=== PATIENT | female | born 1985 | race Caucasian/White ===

== ENCOUNTER → 2018-02-19 | Outpatient (CLI) | payer OTHER ==
[2018-02-19 13:40] LABS: Basophils % (A) 0 %; Eosinophils # (A) 0.3 k/uL (0-0.7); Eosinophils % (A) 3 %; HCT 33.6 % (34.0-46.0); HGB 10.9 gm/dL (11.4-16.0); Hypochromasia Slight; Lymphocytes # (A) 2.7 k/uL (1.0-4.8); Lymphocytes % (A) 31 %; MCH 24.6 pg (25.0-35.0); MCHC 32.3 g/dL (31.0-37.0); MCV 76.1 fL (80.0-100.0); Mean Platelet Volume 6.9; Microcytosis Slight; Monocytes # (A) 0.4 k/uL (0-1.0); Monocytes % (A) 5 %; Neutrophils # (A) 5.1 k/uL (1.3-7.7); Neutrophils % (A) 58 %; Platelet Count 354 k/uL (150-450); RBC 4.42 m/uL (3.80-5.40); RDW 14.7 % (11.5-15.5); WBC 8.7 k/uL (3.8-10.6)
== END | disposition home or self-care (01) ==
LOC: LABPAT 11:51
PROVIDERS: ATTEND Obstetrics & Gynecology
DX: Z01.812 Encounter for preprocedural laboratory examination (principal)
CPT/HCPCS: 36415; 85025

== ENCOUNTER 2018-02-26 06:12 | Day surgery (SDC) | payer OTHER ==
[2018-02-19 11:54] VITALS: BMI 26.6
--- NOTE | 2018-02-25 20:13 | P.HPOB ---
History of Present Illness H&P Date: 02/25/18 Chief Complaint: Family planning This is a 32-year-old female 4 para 1, who presents for laparoscopic bilateral tubal ligation via fulguration. She requests permanent sterilization. She is currently not using control. Obstetrical history: . History of 1 section and 2 miscarriages. She also had one termination of . Gynecologic history: She recently has been treated for Trichomonas. Social history: She is single. She works in a factory. Review of Systems Constitutional: Reports fatigue, Denies chills, Denies fever Eyes: denies blurred vision, denies pain Ears, nose, mouth and throat: Denies headache, Denies sore throat Cardiovascular: Denies chest pain, Denies shortness of breath Respiratory: Denies cough Gastrointestinal: Denies abdominal pain, Denies diarrhea, Denies nausea, Denies vomiting Genitourinary: Reports dysmenorrhea Musculoskeletal: Denies myalgias Integumentary: Denies pruritus, Denies rash Neurological: Reports headaches Psychiatric: Reports anxiety Endocrine: Reports fatigue, Denies weight change Past Medical History Past Medical History: Asthma Additional Past Medical History / Comment(s): Hx of Anemia History of Any Multi-Drug Resistant Organisms: None Reported Past Surgical History: Section, Cholecystectomy Additional Past Surgical History / Comment(s): D&C x 2 Past Anesthesia/Blood Transfusion Reactions: No Reported Reaction Smoking Status: Current every day smoker Past Alcohol Use History: Rare Past Drug Use History: Marijuana Additional Drug Use History / Comment(s): Daily marijuana - Past Family History Mother Family Medical History: No Reported History Father Family Medical History: Hypertension Medications and Allergies Home Medications Medication Instructions Recorded Confirmed Type No Known Home Medications 02/19/18 02/19/18 History Allergies Allergy/AdvReac Type Severity Reaction Status Date / Time No Known Allergies Allergy Verified 02/19/18 11:49 Exam Osteopathic Statement: *. No significant issues noted on an osteopathic structural exam other than those noted in the History and Physical/Consult. HEENT: Within normal limits Heart: Regular rate and rhythm Lungs: Clear to auscultation bilaterally Abdomen: Nontender Pelvic exam: Uterus is anteverted, nontender, with no adnexal masses or tenderness palpated. Extremities: Negative Homans Assessment and Plan (1) Family planning Status: Acute Code(s): Z30.09 - ENCOUNTER FOR OTH GENERAL CNSL AND ADVICE ON CONTRACEPTION SNOMED Code(s): 292674546 Plan: Proceed with laparoscopic bilateral tubal ligation via fulguration. I have discussed the risks, benefits, and alternative therapies for the above- mentioned procedure and for both sedation/anesthesia as well as necessary blood products administration, if indicated, as they pertain to this patient. The patient has indicated her understanding and acceptance of the risks and procedures discussed.
[~2018-02-26 06:12] MED LIST: Pre Op ABX Message 1 EACH MISC MISCELLANE ONE
[2018-02-26] MEDS ORDERED: LIDOCAINE 1% 20 ML VIAL (10MG/ML) FOR IV START INTRADERMA ONE (06:59)
[2018-02-26] MEDS ORDERED: LACTATED RINGERS 1,000 ML IV ONE (06:59)
[2018-02-26] MEDS ORDERED: ONDANSETRON 4 MG/2 ML VIAL IM STA (07:08)
[2018-02-26] MEDS ORDERED: fentaNYL (PF) 50 MCG/ML 2 ML AMP ONE (07:30)
[2018-02-26] MEDS ORDERED: MIDAZOLAM 2 MG/2 ML VIAL ONE (07:30)
[2018-02-26] MEDS ORDERED: KETOROLAC 30 MG/ML 1 ML VIAL ONE (07:30)
[2018-02-26] MEDS ORDERED: HYDROmorphone (PF) 1 MG/ML ONE (07:30)
[2018-02-26] MEDS ORDERED: ROCURONIUM BROMIDE 10 MG/ML 10 ML VIAL IV ONE (07:30)
[2018-02-26] MEDS ORDERED: GLYCOPYRROLATE 0.2 MG/ML 2 ML VIAL ONE (07:30)
[2018-02-26] MEDS ORDERED: NEOSTIGMINE 1 MG/ML 10 ML VIAL ONE (07:30)
[2018-02-26] MEDS ORDERED: LIDOCAINE 1% INJ 10MG/ML (20 ML MDV) ONE (07:30)
[2018-02-26] MEDS ORDERED: PROPOFOL 10 MG/ML 20 ML VIAL IV ONE (07:30)
[2018-02-26] MEDS ORDERED: BUPIVACAINE (PF) 0.5% 30 ML VIAL SQ ONE ×2 (07:59→08:10)
--- NOTE | 2018-02-26 08:17 | P.OP ---
Date of Procedure: 02/26/18 Preoperative Diagnosis: Family planning Postoperative Diagnosis: Same Procedure(s) Performed: Laparoscopic bilateral tubal ligation via fulguration Anesthesia: [place] Surgeon: Mariela Ram Estimated Blood Loss (ml): 5 Pathology: none sent Condition: stable Disposition: same day Indications for Procedure: This is a 32-year-old female 4 para 1, who presents for laparoscopic bilateral tubal ligation via fulguration. She requests permanent sterilization. She is currently not using control. Operative Findings: Uterus is anteverted and sounded to 9 cm. Both tubes appeared normal. Left ovary did have a small hemorrhagic cyst approximately 3 cm. Description of Procedure: The patient is taken to the operating room where she is placed in the dorsal lithotomy position. She is prepped and draped in the normal sterile fashion. Examination is performed under anesthesia. Uterus is found to be in an anteverted position. No adnexal masses were palpated. Next a bivalve speculum was placed in the patient's vagina. A single-tooth tenaculum was used to grasp the anterior lip of the cervix. The cervical os was noted to be slightly stenotic and therefore cervix was dilated with Pino dilators until a sound could be placed. The uterus was sounded to 9 cm. The kroner uterine manipulator was then inserted through the cervix and the balloon was inflated. The single-tooth tenaculum is removed speculum was removed gloves were changed and attention was turned to the abdomen. The infraumbilical fold was grasped in transverse fashion with 2 Allis clamps. A small transverse incision was made with a scalpel. A hemostat was used to carry the incision down to the underlying layer of fascia. A towel clip was placed above the umbilicus for retraction. An 11 mm disposable bladeless trocar was then inserted into the peritoneal cavity under direct visualization. Once inside, pneumoperitoneum was achieved with CO2 gas. The insert was removed and the camera was placed. Intraperitoneal placement was confirmed. No bleeding was noted. Next the patient was placed in Trendelenburg position. A small stab incision was made suprapubically and a 5 mm disposable bladeless trocar was inserted into the peritoneal cavity under direct visualization. Once inside pelvic contents were inspected. Next a bipolar Kleppinger instrument was placed through the inferior trocar and the midportion of each tube was brought away from other structures and completely fulgurated on approximate 2-3 cm segment of each tube. Excellent hemostasis was noted. The bipolar Kleppinger instrument was also used to make a small hole in the left ovarian cyst. Serosanguineous discharge was noted. The cyst did go down in size. A picture was taken. Pneumoperitoneum was released after the inferior trocar was removed under direct visualization. The upper trocar was then removed. The fascial incision was closed with 0 Vicryl suture in interrupted [id number] stitch. The skin incisions were then closed with 4-0 Vicryl suture in a subcuticular fashion. Incision sites were then injected with half percent Marcaine. Approximately 6 mL were used. Next the kroner uterine manipulator was removed. Minimal bleeding was noted. All sponge and needle counts are correct. The patient is then taken to recovery room in stable condition.
[2018-02-26 08:38] VITALS: TEMP 96.9
[2018-02-26] MEDS: HYDROmorphone 1 MG/ML 1 ML SYRINGE IVP ONE ×2 (08:39→08:44)
[2018-02-26 08:51] VITALS: RESP 16
[2018-02-26 09:14] VITALS: BP 120/85; PULSE 68
== END 2018-02-26 09:55 | disposition home or self-care (01) ==
LOC: OR 06:12
PROVIDERS: ATTEND Obstetrics & Gynecology
DX: Z30.2 Encounter for sterilization (principal); N83.202 Unspecified ovarian cyst, left side; J45.909 Unspecified asthma, uncomplicated; F17.210 Nicotine dependence, cigarettes, uncomplicated
CPT/HCPCS: 81025; 58670; J2250; J2710; J2405; J2001; J3010; J1885; J1170; J2704

== ENCOUNTER 2018-07-25 12:05 | Emergency (ER) | payer OTHER ==
[2018-07-25 12:11] VITALS: BP 148/83; RESP 18; TEMP 98.2
--- NOTE | 2018-07-25 12:39 | ED ---
General Adult HPI - General Chief complaint: Upper Respiratory Infection Stated complaint: cough, exposed to pnuemonia Time Seen by Provider: 07/25/18 12:24 Source: patient, RN notes reviewed Mode of arrival: ambulatory Limitations: no limitations - History of Present Illness Initial comments: Patient is a 33-year-old female with history of asthma who presents the emergency department with complaints of cough productive of yellow sputum for 4 days. She reports that she felt a little feverish at home and that her chest feels "tight." She also complains of congestion. Patient denies any recent sore throat, chills, shortness of breath, chest pain, back pain, abdominal pain , nausea or vomiting, numbness or tingling, headaches or visual changes, or any other complaints. - Related Data Previous Rx's Medication Instructions Recorded Acetaminophen-Codeine 300-30mg 1 tab PO Q6H PRN 3 Days #12 tablet 02/26/18 [Tylenol w/codeine #3] Azithromycin [Zithromax Z-pack] 0 mg PO DIRECTED #6 tab 07/25/18 Allergies Allergy/AdvReac Type Severity Reaction Status Date / Time No Known Allergies Allergy Verified 07/25/18 12:09 Review of Systems ROS Statement: Those systems with pertinent positive or pertinent negative responses have been documented in the HPI. ROS Other: All systems not noted in ROS Statement are negative. Past Medical History Past Medical History: Asthma History of Any Multi-Drug Resistant Organisms: None Reported Past Surgical History: Section, Cholecystectomy, Tubal Ligation Additional Past Surgical History / Comment(s): D&C x 2 Past Anesthesia/Blood Transfusion Reactions: No Reported Reaction Past Psychological History: Anxiety Smoking Status: Current every day smoker Past Alcohol Use History: Occasional Past Drug Use History: Marijuana - Past Family History Mother Family Medical History: No Reported History Father Family Medical History: Hypertension General Exam Limitations: no limitations General appearance: alert, in no apparent distress Head exam: Present: atraumatic, normocephalic Eye exam: Present: normal appearance, PERRL ENT exam: Present: normal exam, normal oropharynx, TM's normal bilaterally, normal external ear exam Neck exam: Present: other (No lymphadenopathy.) Respiratory exam: Present: normal lung sounds bilaterally, other (Coughing during exam.) Cardiovascular Exam: Present: regular rate, normal rhythm Neurological exam: Present: alert, oriented X3 Psychiatric exam: Present: normal affect, normal mood Course Vital Signs 07/25/18 07/25/18 07/25/18 12:10 13:25 13:35 Temperature 98.2 F Pulse Rate 92 92 95 Respiratory 18 Rate Blood Pressure 148/83 O2 Sat by Pulse 99 Oximetry Medical Decision Making - Medical Decision Making CXR negative. Influenza A/B negative. Duoneb given here, which patient stated improved her chest tightness. Patient states she does not need an inhaler. Case discussed in detail with attending physician Dr. Currie. - Lab Data Lab Results 07/25/18 Range/Units 13:00 Influenza Type A RNA Not Detected (Not Detectd) Influenza Type B (PCR) Not Detected (Not Detectd) Disposition Clinical Impression: Bronchitis Disposition: HOME SELF-CARE Condition: Good Instructions: Acute Bronchitis (ED) Additional Instructions: Follow-up with your PCP in 2 days. Return to the emergency department if symptoms worsen or any other concerns. Prescriptions: Azithromycin [Zithromax Z-pack] 0 mg PO DIRECTED #6 tab Is patient prescribed a controlled substance at d/c from ED?: No Referrals: None,Stated [Primary Care Provider] - 1-2 days Barry Enamorado MD [REFERRING] - 1-2 days Time of Disposition: 13:50
[2018-07-25] MEDS ORDERED: IPRATROPIUM-ALBUTEROL 3 ML NEB INHALATION STA (12:41)
--- NOTE | 2018-07-25 13:05 | XR ---
EXAMINATION TYPE: XR chest 2V DATE OF EXAM: 07/25/2018 COMPARISON: NONE HISTORY: Chest pain TECHNIQUE: Frontal and lateral views of the chest are obtained. FINDINGS: There is no focal air space opacity. No evidence for pneumothorax. No pleural effusion. The cardiac silhouette size is within normal limits. The osseous structures are grossly intact. IMPRESSION: 1. No acute cardiopulmonary process.
[2018-07-25 13:36] VITALS: PULSE 95
== END 2018-07-25 13:55 | disposition home or self-care (01) ==
LOC: EC 12:05
DX: J45.909 Unspecified asthma, uncomplicated (principal); F17.200 Nicotine dependence, unspecified, uncomplicated
CPT/HCPCS: 71046; 87502; 94640; 99284

== ENCOUNTER 2019-12-02 14:04 | Emergency (ER) | payer OTHER ==
[2019-12-02 14:13] VITALS: PULSE 98
[2019-12-02] MEDS ORDERED: IBUPROFEN 600 MG TAB PO STA (14:50)
--- NOTE | 2019-12-02 15:14 | ED ---
General Adult HPI - General Chief complaint: Eye Problems Stated complaint: rt eye swelling Time Seen by Provider: 12/02/19 14:26 Source: patient, family Mode of arrival: ambulatory Limitations: no limitations - History of Present Illness Initial comments: 34-year-old female patient presents to the emergency department today for evaluation of right eye swelling and discomfort. Patient states the last couple days she has had swelling around the right eye. States that today it seemed to become worse. States she has had similar type symptoms over the last year since getting her cat. States that she had this once in the left eye but mostly in the right. States there is clear drainage from the eye. There is some itching. Sensation states she is having some difficulty with vision due to the swelling but she denies blurred or double vision. Denies any fever or chills. Denies headache. Patient denies any recent rash, cough, shortness of breath, chest pain, abdominal pain, nausea, vomiting, diarrhea, constipation, back pain, numbness, tingling, dizziness, weakness, hematuria, dysuria, urinary urgency, urinary frequency, headache, visual changes, or any other complaints. - Related Data Previous Rx's Medication Instructions Recorded Acetaminophen-Codeine 300-30mg 1 tab PO Q6H PRN 3 Days #12 tablet 02/26/18 [Tylenol w/codeine #3] Azithromycin [Zithromax Z-pack] 0 mg PO DIRECTED #6 tab 07/25/18 Clindamycin [Cleocin] 450 mg PO Q6H #120 cap 12/02/19 Ibuprofen [Motrin] 600 mg PO Q8HR PRN #30 tab 12/02/19 Allergies Allergy/AdvReac Type Severity Reaction Status Date / Time codeine Allergy Rash/Hives Verified 12/02/19 14:14 Review of Systems ROS Statement: Those systems with pertinent positive or pertinent negative responses have been documented in the HPI. ROS Other: All systems not noted in ROS Statement are negative. Past Medical History Past Medical History: Asthma History of Any Multi-Drug Resistant Organisms: None Reported Past Surgical History: Section, Cholecystectomy, Tubal Ligation Additional Past Surgical History / Comment(s): D&C x 2 Past Anesthesia/Blood Transfusion Reactions: No Reported Reaction Past Psychological History: Anxiety Smoking Status: Current every day smoker Past Alcohol Use History: Occasional Past Drug Use History: Marijuana - Past Family History Mother Family Medical History: No Reported History Father Family Medical History: Hypertension General Exam Limitations: no limitations General appearance: alert, in no apparent distress, other (This is a well- developed, well-nourished adult female patient in no acute distress. Vital signs upon presentation are temperature 98.0F, pulse 98, respirations 18, blood pressure 142/103, pulse ox 100% on room air.) Eye exam: Present: PERRL, EOMI, conjunctival injection (Left), periorbital swelling (Left lid edema superior and inferior. ), other (Left eye chemosis noted. Clear drainage. So overlying erythema. ). Absent: normal appearance, scleral icterus ENT exam: Present: normal exam, normal oropharynx, mucous membranes moist Respiratory exam: Present: normal lung sounds bilaterally. Absent: respiratory distress, wheezes, rales, rhonchi, stridor Cardiovascular Exam: Present: regular rate, normal rhythm, normal heart sounds. Absent: systolic murmur, diastolic murmur, rubs, gallop, clicks Neurological exam: Present: alert, oriented X3, CN II-XII intact Psychiatric exam: Present: normal affect, normal mood Skin exam: Present: warm, dry, intact, normal color. Absent: rash Course Vital Signs 12/02/19 12/02/19 14:08 15:58 Temperature 98.0 F 98.2 F Pulse Rate 98 98 Respiratory 18 16 Rate Blood Pressure 142/103 136/99 O2 Sat by Pulse 100 100 Oximetry Medical Decision Making - Medical Decision Making 34-year-old female patient presents to the emergency department today for evaluation of right eye swelling and discomfort. Physical examination does reveal upper and lower lid edema worse on the bottom. There is also conjunctival injection with chemosis to the right globe. No overlying erythema. CT was obtained and shows possible preseptal cellulitis. We will treat with clindamycin. She is instructed follow up with ophthalmology for further evaluation as soon as possible. Return parameters discussed in detail. She verbalizes understanding and agrees with this plan. - Radiology Data Radiology results: report reviewed, image reviewed CT orbits with contrast was obtained. Report was reviewed in its entirety. Impression by Dr. Perez a superficial soft tissue swelling which tracks adjacent to the anterior aspect of the globe on the right anterior and lateral. Small pocket of air is present. Quality for acute cellulitis to post septal extension is not clearly identified at this time. Disposition Clinical Impression: Preseptal cellulitis of right eye Disposition: HOME SELF-CARE Condition: Good Instructions (If sedation given, give patient instructions): Orbital Cellulitis (ED) Additional Instructions: Complete antibiotic prescription in full. Use eye drops 1 drop to the right eye four times daily while awake. Follow-up with the scrap baler for further ev aluation as soon as possible. Return to the emergency department immediately for any new, worsening, or concerning symptoms. Prescriptions: Clindamycin [Cleocin] 450 mg PO Q6H #120 cap Ibuprofen [Motrin] 600 mg PO Q8HR PRN #30 tab PRN Reason: Pain Is patient prescribed a controlled substance at d/c from ED?: No Referrals: Barry Enamorado MD [REFERRING] - 1-2 days Harmeet Longoria MD [STAFF PHYSICIAN] - 1-2 days Time of Disposition: 15:45
--- NOTE | 2019-12-02 15:34 | CT ---
EXAMINATION TYPE: CT orbits w con DATE OF EXAM: 12/02/2019 COMPARISON: None HISTORY: Right eye swelling. CT DLP: 211.6 mGycm Automated exposure control for dose reduction was used. CONTRAST: Performed with IV Contrast, patient injected with 100 mL of Isovue 300. FINDINGS: Small amount of air appears to be under the eyelid on the right. There is soft tissue swelling about the right orbit. This extends medially crossing over to the lateral aspect. No post septal extension is identified. There is some tracking of the soft tissue thickening inferior and lateral to the globe to a minimal degree. Bilateral Intraconal and extraconal fat is normal. Extraocular muscles are normal. Osseous signal is normal. Paranasal sinuses are clear. Plane Tableman spaces are normal. IMPRESSION: 1. SUPERFICIAL SOFT TISSUE SWELLING WHICH TRACKS ADJACENT TO THE ANTERIOR ASPECT OF THE GLOBE ON THE RIGHT INFERIOR AND LATERAL. SMALL POCKET OF AIR IS PRESENT. CORRELATE FOR ACUTE CELLULITIS. POST SEPT AL EXTENSION IS NOT CLEARLY IDENTIFIED AT THIS TIME.
[2019-12-02] MEDS ORDERED: CLINDAMYCIN 150 MG CAP PO STA (15:40)
[2019-12-02] MEDS ORDERED: TOBRAMYCIN 0.3% OPHTH DROPS 5 ML BTL RIGHT EYE STA (15:40)
[2019-12-02] MEDS ORDERED: IBUPROFEN 600 MG STARTER PACK 4 TAB BTL PO STA (15:48)
[2019-12-02 15:59] VITALS: BP 136/99; RESP 16; TEMP 98.2
== END 2019-12-02 16:03 | disposition home or self-care (01) ==
LOC: EC 14:04
DX: L03.213 Periorbital cellulitis (principal); F17.200 Nicotine dependence, unspecified, uncomplicated; Z88.5 Allergy status to narcotic agent
CPT/HCPCS: 99283; 70481; Q9967

== ENCOUNTER 2020-03-23 04:58 | Emergency (ER) | payer OTHER ==
[2020-03-23 05:09] VITALS: BP 154/95; PULSE 99; RESP 18; TEMP 98
--- NOTE | 2020-03-23 05:18 | XR ---
EXAMINATION TYPE: XR ankle complete RT DATE OF EXAM: 03/23/2020 COMPARISON: NONE HISTORY: Ankle pain TECHNIQUE: 3 views FINDINGS: There is soft tissue swelling over the lateral malleolus. I see no fracture nor dislocation . Joint spaces are normal. Ankle mortise is anatomic. IMPRESSION: Soft tissue swelling. No fracture.
--- NOTE | 2020-03-23 05:28 | ED ---
Lower Extremity Injury HPI - General Chief Complaint: Extremity Injury, Lower Stated Complaint: Rt ankle injury Time Seen by Provider: 03/23/20 05:00 Source: patient Mode of arrival: wheelchair Limitations: no limitations - History of Present Illness Initial Comments: There is a 34-year-old female presents the ER this morning for evaluation of right ankle pain. Patient reports that yesterday she jumped a fence and landed funny on her foot, she inverted her ankle she heard a snapping sound. She noted swelling in her ankle. She's been resting and keeping it elevated but has persistent pain. She presented the ER this morning with concern that she cannot go to work due to inability to stand for multiple hours on her foot. Patient has a history of ankle sprains in the past. - Related Data Previous Rx's Medication Instructions Recorded Acetaminophen-Codeine 300-30mg 1 tab PO Q6H PRN 3 Days #12 tablet 02/26/18 [Tylenol w/codeine #3] Azithromycin [Zithromax Z-pack] 0 mg PO DIRECTED #6 tab 07/25/18 Clindamycin [Cleocin] 450 mg PO Q6H #120 cap 12/02/19 Ibuprofen [Motrin] 600 mg PO Q8HR PRN #30 tab 12/02/19 Allergies Allergy/AdvReac Type Severity Reaction Status Date / Time codeine Allergy Rash/Hives Verified 03/23/20 05:09 Review of Systems ROS Statement: Those systems with pertinent positive or pertinent negative responses have been documented in the HPI. ROS Other: All systems not noted in ROS Statement are negative. Past Medical History Past Medical History: Asthma History of Any Multi-Drug Resistant Organisms: None Reported Past Surgical History: Section, Cholecystectomy, Tubal Ligation Additional Past Surgical History / Comment(s): D&C x 2 Past Anesthesia/Blood Transfusion Reactions: No Reported Reaction Past Psychological History: Anxiety Smoking Status: Current every day smoker Past Alcohol Use History: Occasional Past Drug Use History: Marijuana - Past Family History Mother Family Medical History: No Reported History Father Family Medical History: Hypertension General Exam - General Exam Comments Initial Comments: Physical Exam GENERAL: Patient is well-developed and well-nourished. Patient is nontoxic and well-hydrated and is in no distress. HENT: Normocephalic, Atraumatic. EYES: PERRL, EOMI PULMONARY: Unlabored respirations. CARDIOVASCULAR: RRR Warm and well perfused extremities ABDOMEN: Non-distended SKIN: No rashes or bruising : Deferred NEUROLOGIC: Alert and oriented Normal speech Normal gait MUSCULOSKELETAL: Significant swelling in the right ankle, DP and PT pulses are palpable and strong, Refills less than 2 seconds, normal sensation in the foot, no crepitus with range of motion PSYCHIATRIC: No SI/HI Limitations: no limitations Course Vital Signs 03/23/20 05:07 Temperature 98 F Pulse Rate 99 Respiratory 18 Rate Blood Pressure 154/95 O2 Sat by Pulse 100 Oximetry Medical Decision Making - Medical Decision Making Patient was seen and evaluated, history is obtained from the patient X-ray with no fractures History physical exam consistent with a sprain, patient was placed in Aircast, remained neurovascularly intact after splinting Patient was given a work note stating that she cannot stand for greater than one consecutive hour for 1 week supportive care was discussed return parameters were discussed patient discharged in stable condition Patient advised to follow-up with primary care physician for repeat images if she has any persistent pain, patient states she is familiar with the plan that she's had multiple sprains in the past. Disposition Clinical Impression: Ankle sprain Disposition: HOME SELF-CARE Condition: Stable Instructions (If sedation given, give patient instructions): Ankle Sprain (ED) Is patient prescribed a controlled substance at d/c from ED?: No Referrals: Barry Enamorado MD [Primary Care Provider] - 1-2 days
== END 2020-03-23 05:50 | disposition home or self-care (01) ==
LOC: EC 04:58
DX: S93.401A Sprain of unspecified ligament of right ankle, initial encounter (principal); F17.200 Nicotine dependence, unspecified, uncomplicated; Z88.5 Allergy status to narcotic agent; X50.9XXA Other and unspecified overexertion or strenuous movements or postures, initial encounter; Y93.39 Activity, other involving climbing, rappelling and jumping off
CPT/HCPCS: 99283